=== PATIENT | female | born 1960 | race Caucasian/White ===

== ENCOUNTER 2018-12-25 08:36 | Day surgery (SDC) | payer OTHER ==
[2018-12-23 13:52] VITALS: BMI 31.1
[2018-12-25] MEDS ORDERED: LIDOCAINE HCL/PF 2% SDV 5ML VIAL ONE (09:58)
[2018-12-25] MEDS ORDERED: PROPOFOL 20 ML ONE ×2 (09:58)
[2018-12-25 11:00] VITALS: TEMP 98.6
[2018-12-25 11:46] VITALS: BP 105/66; PULSE 54
== END 2018-12-25 11:46 | disposition home or self-care (01) ==
LOC: FASU-ENDO 08:36
PROVIDERS: ATTEND Internal Medicine Gastroenterology
PROC: 0DJD8ZZ Inspection of Lower Intestinal Tract, Via Natural or Artificial Opening Endoscopic (ICD-10-PCS; principal; 2018-12-25 10:19)
DX: Z12.11 Encounter for screening for malignant neoplasm of colon (principal); K64.1 Second degree hemorrhoids

== ENCOUNTER 2020-10-25 16:34 | Emergency (ER) | payer OTHER | END 2020-10-25 17:21 | disposition home or self-care (01) | LOC: JVIRT 16:34 | DX: Z11.52 Encounter for screening for COVID-19 (principal) | CPT/HCPCS: G2251-GT; Q3014-GT ==

== ENCOUNTER 2021-02-01 20:22 | Observation (INO) | payer OTHER ==
[2021-02-01] MEDS ORDERED: morphine CARPU-JECT 4 MG/1 ML DISP.SYRIN IVPUSH ONE (22:42)
[2021-02-02 00:14] LABS: BASO % 0.2 % (0-2.0); EOS % 1.6 % (0-4.5); HEMATOCRIT 34.9 % (32.4-45.2); HEMOGLOBIN 11.5 GM/dL (10.7-15.3); LYMPH % 38.7 % (8-40); MCH 27.9 pg (25.7-33.7); MCHC 33.1 g/dl (32.0-36.0); MEAN CELL VOLUME 84.3 fl (80-96); MEAN PLT VOLUME 8.3 fl (7.5-11.1); MONO % 7.5 % (3.8-10.2); PLATELET COUNT 214 10^3/uL (134-434); RBC 4.14 M/mm3 (3.60-5.2); RDW 14.6 % (11.6-15.6); WHITE BLOOD COUNT 9.6 K/mm3 (4.0-10.0)
[2021-02-02 00:43] LABS: ALBUMIN 3.8 g/dl (3.4-5.0); BLOOD UREA NITROGEN 16.6 mg/dL (7-18); CALCIUM 9.4 mg/dL (8.5-10.1)
[2021-02-02 00:46] LABS: CREATININE 0.5 mg/dL (0.55-1.3)
[2021-02-02 00:48] LABS: BILIRUBIN,TOTAL 0.4 mg/dL (0.2-1); TOT PROT 7.4 g/dl (6.4-8.2)
[2021-02-02] MEDS ORDERED: morphine CARPU-JECT 4 MG/1 ML DISP.SYRIN IVPUSH ONE ×2 (01:10→02:38)
[2021-02-02] MEDS ORDERED: MORPHINE SULFATE 2 MG/ML VIAL ONE ×3 (01:36→07:23)
[2021-02-02] MEDS ORDERED: morphine CARPU-JECT 4 MG/1 ML DISP.SYRIN IVPUSH PRN (01:36)
[2021-02-02] MEDS ORDERED: ACETAMINOPHEN 1000 MG/100 ML VIAL (NON FORMULARY) IVPB PRN (03:06)
[2021-02-02] MEDS ORDERED: KETOROLAC TROMETHAMINE 15 MG/ML VIAL IVPUSH PRN (03:44)
[2021-02-02] MEDS ORDERED: KETOROLAC TROMETHAMINE 15 MG/ML VIAL IM ONE (03:49)
[2021-02-02] MEDS ORDERED: MORPHINE SULFATE 2 MG/ML VIAL IVPUSH PRN ×2 (06:49→11:00)
[2021-02-02 11:34] VITALS: BMI 32.9
[2021-02-02] MEDS: DOCUSATE SODIUM 100 MG CAPSULE (FP) PO SCH ×2 (11:45→21:02)
[2021-02-02] MEDS ORDERED: ONDANSETRON 4 MG/2 ML VIAL IVPB PRN (16:22)
[2021-02-03 07:55] LABS: HEMATOCRIT 35.6 % (32.4-45.2); HEMOGLOBIN 11.6 GM/dL (10.7-15.3); MCH 27.5 pg (25.7-33.7); MCHC 32.4 g/dl (32.0-36.0); MEAN CELL VOLUME 84.8 fl (80-96); MEAN PLT VOLUME 8.7 fl (7.5-11.1); PLATELET COUNT 223 10^3/uL (134-434); RDW 14.9 % (11.6-15.6); WHITE BLOOD COUNT 9.8 K/mm3 (4.0-10.0)
[2021-02-03 08:01] LABS: ALBUMIN 3.5 g/dl (3.4-5.0); BLOOD UREA NITROGEN 11.9 mg/dL (7-18)
[2021-02-03 08:04] LABS: CREATININE 0.4 mg/dL (0.55-1.3)
[2021-02-03 08:05] LABS: BILIRUBIN,TOTAL 0.5 mg/dL (0.2-1); TOT PROT 6.9 g/dl (6.4-8.2)
[2021-02-03] MEDS: DOCUSATE SODIUM 100 MG CAPSULE (FP) PO SCH ×2 (09:18→21:30)
[2021-02-03] MEDS ORDERED: LACTATED RINGERS SOLUTION 1,000 ML/1,000 ML INFUS.BAG IV SCH (20:00)
[2021-02-04 06:43] VITALS: TEMP 98.1
[2021-02-04] MEDS ORDERED: KETOROLAC TROMETHAMINE 30 MG/1 ML VIAL ONE (08:44)
[2021-02-04] MEDS ORDERED: LIDOCAINE HCL/PF 2% SDV 5ML VIAL ONE (08:44)
[2021-02-04] MEDS ORDERED: ceFAZolin SODIUM 1 GM VIAL ONE (08:44)
[2021-02-04] MEDS ORDERED: LIDOCAINE HCL 2% JELLY (5 ML/TUBE) ONE (08:44)
[2021-02-04] MEDS ORDERED: ONDANSETRON 4 MG/2 ML VIAL ONE (08:44)
[2021-02-04] MEDS ORDERED: DEXAMETHASONE SOD PHOSPHATE 4 MG/1 ML VIAL ONE (08:44)
[2021-02-04] MEDS ORDERED: MIDAZOLAM HCL 2 MG/2 ML SINGLE DOSE VIAL ONE (08:45)
[2021-02-04] MEDS ORDERED: PROPOFOL 20 ML ONE ×2 (08:45)
[2021-02-04] MEDS ORDERED: BUPIVACAINE HCL/PF 0.25% (2.5MG/ML) 10 ML VIAL ONE (08:47)
[2021-02-04] MEDS ORDERED: SUCCINYLCHOLINE CHLORIDE 200 MG/10 ML SYRINGE ONE (09:46)
[2021-02-04] MEDS ORDERED: oxyCODONE HCL 5 MG TABLET ONE (10:13)
[2021-02-04] MEDS: DOCUSATE SODIUM 100 MG CAPSULE (FP) PO SCH (11:10)
[2021-02-04 11:46] VITALS: BP 102/54; PULSE 62
== END 2021-02-04 14:50 | disposition home or self-care (01) ==
LOC: JER 20:22 → UNDOADMOB 02-02 01:10 → INTOOBSV 02-02 01:10 → JERBED 02-02 01:10 → J6S 02-02 09:20 → JERBED 02-03 07:48 → UNDODISOB 02-03 14:00 → JICU 02-03 14:29 → FM/S 02-03 14:35
PROVIDERS: ADMIT Hospitalist; ATTEND Nurse Practitioner Acute Care
PROC: 0SBC4ZZ Excision of Right Knee Joint, Percutaneous Endoscopic Approach (ICD-10-PCS; principal; 2021-02-01)
PROC: 3E033NZ Introduction of Analgesics, Hypnotics, Sedatives into Peripheral Vein, Percutaneous Approach (ICD-10-PCS; 2021-02-01)
PROC: 3E033GC Introduction of Other Therapeutic Substance into Peripheral Vein, Percutaneous Approach (ICD-10-PCS; 2021-02-01)
PROC: 3E0337Z Introduction of Electrolytic and Water Balance Substance into Peripheral Vein, Percutaneous Approach (ICD-10-PCS; 2021-02-01)
DX: M23.203 Derangement of unspecified medial meniscus due to old tear or injury, right knee (principal); M25.561 Pain in right knee; Z87.891 Personal history of nicotine dependence; E66.8 Other obesity; Z68.32 Body mass index [BMI] 32.0-32.9, adult; D64.9 Anemia, unspecified; Z29.9 Encounter for prophylactic measures, unspecified
CPT/HCPCS: 36415; 73562-TC-RT-FY; 80053; 85025; 85027; 93005; 93010; 93971-TC; 94760; 96361; 96374; 96375; 96376; 97116-GP; 97161-GP; 99285-25; C9803; G0378; J0131; U0003; U0005

== ENCOUNTER 2022-03-13 16:00 | Emergency (ER) | payer OTHER ==
[2022-03-13 16:32] VITALS: BP 119/72; PULSE 76; RESP 18; TEMP 98.1; BMI 33.8
[2022-03-13] MEDS ORDERED: ACETAMINOPHEN 500 MG TABLET (FP) PO ONE (19:22)
[2022-03-13] MEDS ORDERED: KETOROLAC TROMETHAMINE 15 MG/ML VIAL IM ONE (19:41)
[2022-03-13] MEDS ORDERED: ACETAMINOPHEN 500 MG TABLET (FP) ONE (19:42)
[2022-03-13] MEDS ORDERED: KETOROLAC TROMETHAMINE 15 MG/ML VIAL ONE (19:42)
== END 2022-03-13 20:06 | disposition home or self-care (01) ==
LOC: JER 16:00 → JERFT 16:00
PROC: 3E023GC Introduction of Other Therapeutic Substance into Muscle, Percutaneous Approach (ICD-10-PCS; principal; 2022-03-13)
DX: S93.402A Sprain of unspecified ligament of left ankle, initial encounter (principal); W10.8XXA Fall (on) (from) other stairs and steps, initial encounter
CPT/HCPCS: 73590-TC-LT-FY; 73610-TC-LT-FY; 73630-TC-LT; 99284-25

== ENCOUNTER 2023-03-13 05:02 | Day surgery (SDC) | payer OTHER ==
[2023-03-08 16:26] VITALS: BMI 31.4
[2023-03-13] MEDS ORDERED: EPINEPHrine 1:10,000 (P-F SYR) 1 MG/10 ML DISP.SYRIN ONE (10:21)
[2023-03-13 10:50] VITALS: TEMP 97.8
[2023-03-13 11:34] VITALS: BP 115/62; PULSE 56; RESP 15
== END 2023-03-13 12:15 | disposition home or self-care (01) ==
LOC: JASU-ENDO 05:02
PROVIDERS: ATTEND Internal Medicine Gastroenterology
PROC: 0DB78ZX Excision of Stomach, Pylorus, Via Natural or Artificial Opening Endoscopic, Diagnostic (ICD-10-PCS; 2023-03-13)
PROC: 0DB68ZX Excision of Stomach, Via Natural or Artificial Opening Endoscopic, Diagnostic (ICD-10-PCS; principal; 2023-03-13 09:15)
DX: K29.50 Unspecified chronic gastritis without bleeding (principal); K31.7 Polyp of stomach and duodenum

== ENCOUNTER 2024-04-20 23:00 | Emergency (ER) | payer OTHER ==
[2024-04-20 23:55] VITALS: BP 139/79; PULSE 64; RESP 18; TEMP 98.8; BMI 31.4
[2024-04-21 00:42] LABS: BASO % 0.3 % (0-2.0); EOS % 1.8 % (0-4.5); HEMATOCRIT 36.1 % (32.4-45.2); LYMPH % 35.5 % (8-40); MCHC 33.3 g/dl (32.0-36.0); MEAN PLT VOLUME 8.2 fl (7.5-11.1); MONO % 11.3 % (3.8-10.2); NEUT % 51.1 % (42.8-82.8); PLATELET COUNT 200 10^3/uL (134-434); RBC 4.14 M/mm3 (3.60-5.2); WHITE BLOOD COUNT 7.2 K/mm3 (4.0-10.0)
[2024-04-21 00:58] LABS: VENOUS O2 SATURATION 93.3 % (70-80); VENOUS PCO2 39.5 mmHg (38-52); VENOUS PH 7.38 (7.310-7.410)
[2024-04-21 00:59] LABS: CALCIUM 9.4 mg/dL (8.5-10.1)
[2024-04-21 01:00] LABS: ALBUMIN 3.5 g/dl (3.4-5.0); BLOOD UREA NITROGEN 15.4 mg/dL (7-18)
[2024-04-21 01:03] LABS: CREATININE 0.8 mg/dL (0.55-1.3)
[2024-04-21 01:04] LABS: BILIRUBIN,TOTAL 0.4 mg/dL (0.2-1); TOT PROT 7.1 g/dl (6.4-8.2)
[2024-04-21] MEDS ORDERED: KETOROLAC TROMETHAMINE 30 MG/1 ML VIAL ONE (01:22)
[2024-04-21] MEDS: KETOROLAC TROMETHAMINE 30 MG/1 ML VIAL IVPUSH ONE (01:25)
[2024-04-21] MEDS: SODIUM CHLORIDE 1,000 ML IV ONE (01:26)
[2024-04-21] MEDS ORDERED: DEXAMETHASONE 4 MG TABLET (FP) ONE (03:16)
[2024-04-21] MEDS: DEXAMETHASONE 4 MG TABLET (FP) PO ONE (03:23)
== END 2024-04-21 03:35 | disposition home or self-care (01) ==
LOC: JER 23:00
PROC: 3E0333Z Introduction of Anti-inflammatory into Peripheral Vein, Percutaneous Approach (ICD-10-PCS; principal; 2024-04-21)
DX: R06.02 Shortness of breath (principal); R07.0 Pain in throat; R53.81 Other malaise; M79.10 Myalgia, unspecified site; R05.9 Cough, unspecified; R51.9 Headache, unspecified; Z20.822 Contact with and (suspected) exposure to COVID-19
CPT/HCPCS: 0241U-QW; 36415; 71046-TC-FY; 80053; 82803; 84484; 85025; 93005; 93010; 99285-25